=== PATIENT | male | born 1980 | race Asian ===

== ENCOUNTER 2017-09-08 01:25 | Emergency (ER) | payer MEDICAID, OTHER ==
[~2017-09-08] VITALS: Ht 170.2 cm; Wt 80.0 kg
[2017-09-08] MEDS ORDERED: naproxen 500mg tablet PO ONE (01:40)
[2017-09-08 02:01] VITALS: BP 138/82
== END 2017-09-08 02:02 | disposition home or self-care (01) ==
LOC: ER 01:25
DX: M25.512 Pain in left shoulder (principal); F17.200 Nicotine dependence, unspecified, uncomplicated; V89.2XXA Person injured in unspecified motor-vehicle accident, traffic, initial encounter; Y93.89 Activity, other specified; Y92.89 Other specified places as the place of occurrence of the external cause; Y99.8 Other external cause status
CPT/HCPCS: 99282; 99283